=== PATIENT | male | born 2000 | race Caucasian/White ===

== ENCOUNTER 2021-03-27 22:37 | Inpatient (IN) | payer OTHER ==
[~2021-03-27] VITALS: Ht 180.3 cm; Wt 72.1 kg
[2021-03-27] MEDS ORDERED: CONTRAST GIVEN. MC PRN (23:15)
[2021-03-27 23:26] LABS: BASO % 0 % (0-3); EOS # 0.1 x10^3/uL (0.0-0.7); EOS % 2 % (0-3); HEMATOCRIT 41.6 % (39.0-53.0); HEMOGLOBIN 14.6 g/dL (13.0-17.5); LYMPH # 2.2 x10^3/uL (1.0-4.8); LYMPH % 28 % (24-48); MEAN CORPUSCULAR HEMOGLOBIN 31 pg (25-35); MEAN CORPUSCULAR HGB CONC 35 g/dL (31-37); MEAN CORPUSCULAR VOLUME 89 fL (79-100); MONO # 0.7 x10^3/uL (0.0-1.1); MONO % 9 % (0-9); NEUT # 4.9 x10^3/uL (1.8-7.7); NEUT % 61 % (31-73); PLATELET COUNT 221 x10^3/uL (140-400); RED BLOOD COUNT 4.68 x10^6/uL (4.30-5.70); WHITE BLOOD COUNT 7.9 x10^3/uL (4.0-11.0)
[2021-03-27] MEDS ORDERED: IOHEXOL 300 MG/ML 100ML VIAL. IV ONE (23:30)
[2021-03-27 23:39] LABS: CREATININE 1.1 mg/dL (0.7-1.3); GFR 83.7
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
[2021-03-27 23:47] LABS: ALBUMIN 3.9 g/dL (3.4-5.0); ALBUMIN/GLOBULIN RATIO 1.2 (1.0-1.7); TOTAL BILIRUBIN 0.2 mg/dL (0.2-1.0); TOTAL PROTEIN 7.2 g/dL (6.4-8.2)
--- NOTE | 2021-03-28 00:17 | RAD ---
Examination: CT head and cervical spine without contrast CT HEAD INDICATION: Reason: altered mental status trauma / Spl. Instructions: / History: COMPARISON: None Available. Exposure: One or more of the following individualized dose reduction techniques were utilized for thi s examination: 1. Automated exposure control 2. Adjustment of the mA and/or kV according to patient size 3. Use of iterative reconstruction technique TECHNIQUE: 5 mm contiguous axial images were obtained from the skull base to the vertex in both bone and soft tissue algorithm. FINDINGS: No abnormal attenuation within the brain parenchyma. No evidence of acute intracranial hemorrhage. No extra-axial fluid collections. No mass effect or midline shift. Ventricular size is appropriate. Basal cisterns are patent. No fractures identified.Pro-white differentiation is preserved.Globes and orbits are within normal l imits. Paranasal sinuses and mastoid air cells are clear. IMPRESSION: Unremarkable CT examination of the head without contrast, as above. Specifically, no evidence of an acute intracranial abnormality. CT CERVICAL SPINE INDICATION: Reason: altered mental status trauma / Spl. Instructions: / History: COMPARISON: None Available. Technique: 2.5 mm contiguous axial images were obtained from the skull base through the cervicothorac ic junction in both bone and soft tissue algorithm. Additional sagittal and coronal reconstructions were also performed. FINDINGS: Vertebral body height and alignment are maintained. Cervical lordosis is preserved. The l ateral masses of C1 are aligned upon C2. No fractures identified. The bony canal is patent throughout. No significant degenerative changes are identified. The paraspinous soft tissues are unremarkable. Visualized intracranial contents are unremarkable. L elina apices are clear. IMPRESSION: Unremarkable CT examination of the cervical spine, as above. Specifically, no fractures are seen. Electronically signed by: Koby Zhang MD (03/28/2021 12:15 AM) [id number]
--- NOTE | 2021-03-28 00:27 | RAD ---
Examination: CT chest/abdomen/pelvis with IV contrast and CT thoracic and lumbar spine without contra st Indication: Trauma altered mental status Technique: Contiguous axial images were obtained through the chest, abdomen, and pelvis after adminis tration of IV contrast. Coronal and sagittal reformations were created. Exposure: One or more of the following individualized dose reduction techniques were utilized for thi s examination: 1. Automated exposure control 2. Adjustment of the mA and/or kV according to patient size 3. Use of iterative reconstruction technique Comparison: None Findings: There is no mediastinal hematoma. The heart size is normal. There is no pericardial effusion. The tho racic aorta is normal in caliber. There is no evidence for dissection. The central airways are patent . There is no pulmonary contusion, pleural effusion, or pneumothorax. No fractures are identified. The liver and spleen are normal in size with no evidence for contusion. The pancreas and adrenal glan ds are within normal limits. The kidneys are unremarkable. The bowel loops are normal in caliber. The appendix is normal. The abdominal aorta is normal in caliber with no evidence for dissection. There is no hemoperitoneum. The urinary bladder is intact. No fracture is identified. IMPRESSION: 1. No acute traumatic findings. Electronically signed by: Koby Zhang MD (03/28/2021 12:25 AM) [id number]
[2021-03-28] MEDS ORDERED: ONDANSETRON PF 4 MG/2 ML VIAL. IVP PRN (00:45)
[2021-03-28] MEDS ORDERED: ACETAMINOPHEN 325 MG TABLET. PO PRN (00:45)
--- NOTE | 2021-03-28 00:52 | RAD ---
Examination: Frontal view the pelvis and frontal view of the chest HISTORY: History of fall, pain COMPARISON: None available FINDINGS: Low lung volumes and technique accentuates heart size and pulmonary vascularity. The lungs are clear. The bilateral femoral heads within the acetabula. There is no obvious acute fracture or dislocation IMPRESSION: 1. No acute cardiopulmonary findings. 2. No acute osseous findings. Electronically signed by: Koby Zhang MD (03/28/2021 12:49 AM) [id number]
[2021-03-28 01:07] LABS: BILIRUBIN,URINE NEGATIVE (NEG); CLARITY,URINE CLEAR; COLOR,URINE YELLOW; NITRITE,URINE NEGATIVE (NEG); PROTEIN,URINE NEGATIVE (NEG-TRACE); UROBILINOGEN,URINE 0.2 mg/dL (0.2 mg/dL)
[2021-03-28 01:14] LABS: BARBITURATES NEG (NEG); BENZODIAZEPINES NEG (NEG); CANNABINOIDS NEG (NEG); COCAINE NEG (NEG); METHADONE NEG (NEG); OPIATES NEG (NEG); PHENCYCLIDINE NEG (NEG)
[2021-03-28 01:31] LABS: AMPHETAMINE/METHAMPHETAMINE NEG (NEG)
[2021-03-28 01:46] LABS: BACTERIA,URINE 0 /HPF (0-FEW)
[2021-03-28] MEDS ORDERED: DIPH,PERTUSS(ACELL),TET VAC/PF 0.5 ML SYRINGE. VAX IM ONE (02:30)
[2021-03-28 03:05] VITALS: BP 131/72
[2021-03-28 07:00] VITALS: BP 123/78
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
--- NOTE | 2021-03-28 13:54 | NUR ---
pt was discharged today home with self care, his father was with him at discharge at 1051...Artis Bruce RN
== END 2021-03-28 10:51 | disposition home or self-care (01) | DRG 914 ==
LOC: ER 22:37 → 5 SOUTH 03-28 00:37
PROVIDERS: ADMIT Internal Medicine; ATTEND Internal Medicine
DX: S09.90XA Unspecified injury of head, initial encounter (principal); F10.129 Alcohol abuse with intoxication, unspecified; Z20.822 Contact with and (suspected) exposure to COVID-19; W18.39XA Other fall on same level, initial encounter; Y93.89 Activity, other specified; Y92.89 Other specified places as the place of occurrence of the external cause; Y99.8 Other external cause status
CPT/HCPCS: 36415; 70450; 71045; 71260; 72125; 72170; 74177; 80053; 80307; 81001; 85025; 86850; 86900; 86901; 87426; 96361; 96374; G0480; J2060; Q9967; U0003; U0005; 99285-25; G0378